=== PATIENT | male | born 1955 | race Caucasian/White ===

== ENCOUNTER 2017-11-09 08:23 | Inpatient (IN) | payer MEDICARE ==
[2017-11-08 14:22] LABS: BASOPHILS % (AUTO) 0.6 % (0-1); EOSINOPHILS # (AUTO) 0.3 X10'3 (0-0.9); EOSINOPHILS % (AUTO) 3.9 % (0-6); LYMPHOCYTES # (AUTO) 2.9 X10'3 (1.1-4.8); LYMPHOCYTES % (AUTO) 36.3 % (21-51); MEAN CORPUSCULAR HEMOGLOBIN 28.9 PG (27.0-31.0); MEAN CORPUSCULAR HGB CONC 34.3 % (33.0-36.5); MEAN CORPUSCULAR VOLUME 84.5 FL (78-98); MEAN PLATELET VOLUME 8.2 FL (7.4-10.4); MONOCYTES # (AUTO) 0.6 X10'3 (0-0.9); MONOCYTES % (AUTO) 6.9 % (2-12); NEUTROPHILS # (AUTO) 4.2 X10'3 (1.8-7.7); NEUTROPHILS % (AUTO) 52.3 % (42-75); PRE OP HEMATOCRIT 38.9 % (42.0-52.0); PRE OP HEMOGLOBIN 13.3 g/dL (14.0-17.9); PRE OP PLATELET COUNT 208 X10'3 (140-440); RED BLOOD COUNT 4.61 X10'6 (4.70-6.10); RED CELL DISTRIBUTION WIDTH 13.8 % (11.5-14.5)
[2017-11-08 14:29] LABS: PRE OP PROTIME 10.1 SECONDS (9.0-12.0)
[2017-11-08 14:33] LABS: ALBUMIN 3.6 G/DL (3.4-5.0); ALKALINE PHOSPHATASE 51 IU/L (46-116); BLOOD UREA NITROGEN 24 MG/DL (7-18); BUN/CREATININE RATIO 21.8 (5.4-32.0); CALCIUM 8.8 MG/DL (8.5-10.1); CHLORIDE 104 MMOL/L (99-107); PRE OP ALT 33 U/L (30-65); PRE OP ANION GAP 8 (8-16); PRE OP AST 22 U/L (10-37); PRE OP BILIRUB, TOTAL 0.6 MG/DL (0.0-1.0); PRE OP GLUCOSE 86 MG/DL (70-104); PRE OP SODIUM 141 MMOL/L (135-145); TOTAL CARBON DIOXIDE 29.5 MMOL/L (24-32); TOTAL PROTEIN 7.1 G/DL (6.4-8.2); eGFR 68 ML/MIN
[~2017-11-09] VITALS: Ht 181.6 cm; Wt 113.9 kg
[2017-11-09] VITALS (19 sets, daily range): BP systolic 120–143; BP diastolic 65–92
[~2017-11-09 08:23] MED LIST: AMIT75TA2 PO; CETI10TA15 PO; CHOL100046 PO; FLO0.4C PO; FLUT16SP2 BOTHNARES; HYDR-565 PO; LISI30TA4 PO; MELA10TA2 PO; SIMV40TA4 PO; ceFAZolin 2gm in dextrose, iso 100 ML IV ONE; famotidine 20mg tablet PO ONE; ringers solution, lacted 1,000 ML IV SCH; tranexamic acid inj. 1,000 MG in normal saline 100ml IV soln 90 ML IV ONE; vancomycin/NS 1 GM ADD-VANTAGE 250 ML X 1 DOSE IV ONE
[2017-11-09] MEDS ORDERED: ROPIVAcaine 0.5% (5mg/ml) 30ml vial ONE ×3 (11:20→13:11)
[2017-11-09] MEDS ORDERED: ketorolac trometh. 30mg/ml inj. ONE (11:20)
[2017-11-09] MEDS ORDERED: tranexamic acid inj. 1,140 MG in normal saline 100ml IV soln 88.6 ML IV ONE ×4 (11:45)
[2017-11-09] MEDS ORDERED: vancomycin 1,000mg inj ONE (11:57)
[2017-11-09] MEDS ORDERED: tranexamic acid inj. 1,000 MG in normal saline 100ml IV soln 90 ML IV ONE (12:00)
[2017-11-09] MEDS ORDERED: sevoflurane 250ml liquid IH ONE (12:17)
[2017-11-09] MEDS ORDERED: midazolam 2 mg/2 ml injection ONE (12:23)
[2017-11-09] MEDS ORDERED: fentaNYL /PF 50mcg/ml 5ml ampule ONE (12:23)
[2017-11-09] MEDS ORDERED: ringers solution, lacted 1,000 ML IV SCH (13:19)
[2017-11-09] MEDS ORDERED: ketorolac trometh. 30mg/ml inj. IV ONE (13:20)
[2017-11-09] MEDS ORDERED: meperidine/PF 25mg/ml syringe IV PRN ×2 (13:20)
[2017-11-09] MEDS ORDERED: ondansetron/PF 4mg/2ml inj IV PRN (13:20)
[2017-11-09] MEDS ORDERED: morphine 4 MG/ML inj SYRINge IV PRN ×2 (13:20)
[2017-11-09] MEDS ORDERED: proCHLORperazine 10 MG/2 ml inj IV PRN (13:20)
[2017-11-09] MEDS ORDERED: rocuronium 10mg/ml inj IV ONE (14:50)
[2017-11-09] MEDS ORDERED: propofol inj 20 ML IV ONE (14:50)
[2017-11-09] MEDS ORDERED: fentaNYL/PF 50MCG/1 ML 2ML syringe ONE (14:51)
[2017-11-09] MEDS ORDERED: HYDROmorphone inj. 0.5 MG/0.5 ML DISP.SYRIN IV PRN ×2 (15:55)
[2017-11-09] MEDS ORDERED: acetaminophen 325mg tablet PO PRN (15:55)
[2017-11-09] MEDS ORDERED: oxyCODONE IR 5mg (immed. release) tablet PO PRN (15:55)
[2017-11-09] MEDS ORDERED: magnesium hydroxide 30ml (MOM) UD suspension PO PRN (15:55)
[2017-11-09] MEDS ORDERED: bisacodyl 10mg suppository rectal RC PRN (15:55)
[2017-11-09] MEDS ORDERED: diphenhydrAMINE 25mg capsule PO PRN ×2 (15:55)
[2017-11-09] MEDS: ceFAZolin 1GM/D5W- ADD-VANTAGE 50 ML IV SCH (16:00)
[2017-11-09] MEDS: acetaminophen 1,000mg/100ml IV 100 ML IV PRN ×2 (16:47→19:07)
[2017-11-09] MEDS: meperidine/PF 25mg/ml syringe IV PRN ×3 (16:48→19:07)
[2017-11-09] MEDS ORDERED: TRANEXAMIC ACID IV ONE (19:00)
[2017-11-09] MEDS ORDERED: NORMAL SALINE IV ONE (19:00)
[2017-11-09] MEDS ORDERED: HYDROmorphone 1 mg/ml syringe IV PRN (19:22)
[2017-11-09] MEDS: HYDROmorphone 1 mg/ml syringe IV PRN (19:30)
[2017-11-09] MEDS: potassium cl 20mEq in 1/2 NS 1,000 ML IV SCH ×2 (19:32→23:51)
[2017-11-09] MEDS ORDERED: vancomycin/NS 1 GM ADD-VANTAGE 250 ML IV SCH (20:00)
[2017-11-09] MEDS: ketorolac tromethamine 15mg/ml inj. IV SCH (20:37)
[2017-11-09] MEDS: acetaminophen 325mg tablet PO SCH (20:39)
[2017-11-09] MEDS: atorvastatin 20mg tablet PO SCH (20:39)
[2017-11-09] MEDS: gabapentin 300mg capsule PO SCH (20:39)
[2017-11-09] MEDS: sennosides 8.6mg tablet PO SCH (20:40)
[2017-11-09] MEDS: amitriptyline 25mg tablet PO SCH (20:40)
[2017-11-10] VITALS (7 sets, daily range): BP systolic 114–144; BP diastolic 72–87
[2017-11-10] MEDS: ceFAZolin 1GM/D5W- ADD-VANTAGE 50 ML IV SCH (00:43)
[2017-11-10] MEDS: ketorolac tromethamine 15mg/ml inj. IV SCH ×3 (01:43→14:01)
[2017-11-10] MEDS: acetaminophen 325mg tablet PO SCH ×4 (01:44→19:35)
[2017-11-10] MEDS: potassium cl 20mEq in 1/2 NS 1,000 ML IV SCH ×3 (05:30→23:51)
[2017-11-10 05:44] LABS: BASOPHILS # (AUTO) 0.1 X10'3 (0-0.2); BASOPHILS % (AUTO) 0.6 % (0-1); EOSINOPHILS # (AUTO) 0.3 X10'3 (0-0.9); HEMATOCRIT 35.6 % (42.0-52.0); HEMOGLOBIN 12.1 g/dl (14.0-17.9); LYMPHOCYTES # (AUTO) 1.7 X10'3 (1.1-4.8); LYMPHOCYTES % (AUTO) 19.1 % (21-51); MEAN CORPUSCULAR HEMOGLOBIN 29.1 PG (27.0-31.0); MEAN CORPUSCULAR HGB CONC 34.1 % (33.0-36.5); MEAN CORPUSCULAR VOLUME 85.3 FL (78-98); MEAN PLATELET VOLUME 8.3 FL (7.4-10.4); MONOCYTES # (AUTO) 0.5 X10'3 (0-0.9); MONOCYTES % (AUTO) 5.7 % (2-12); NEUTROPHILS # (AUTO) 6.5 X10'3 (1.8-7.7); NEUTROPHILS % (AUTO) 71.6 % (42-75); PLATELET COUNT 179 X10'3 (140-440); RED BLOOD COUNT 4.17 X10'6 (4.70-6.10); RED CELL DISTRIBUTION WIDTH 13.7 % (11.5-14.5)
[2017-11-10 06:14] LABS: ANION GAP 7 (8-16); CHLORIDE 105 MMOL/L (99-107); POTASSIUM 4.5 MMOL/L (3.5-5.1); SODIUM 142 MMOL/L (135-145); TOTAL CARBON DIOXIDE 30.4 MMOL/L (24-32)
[2017-11-10] MEDS: gabapentin 300mg capsule PO SCH ×3 (07:59→19:34)
[2017-11-10] MEDS: fluticasone nasal spray 16GM bottle NS SCH (08:00)
[2017-11-10] MEDS ORDERED: cetirizine 10mg tablet PO SCH (08:00)
[2017-11-10] MEDS: vitamin D (cholecalciferol) 1,000 unit tablet PO SCH (08:00)
[2017-11-10] MEDS: oxyCODONE IR 5mg (immed. release) tablet PO PRN ×4 (08:02→22:50)
[2017-11-10] MEDS: aspirin 325mg tablet PO SCH (08:02)
[2017-11-10] MEDS: lisinopril 10 MG tablet PO SCH (08:02)
[2017-11-10] MEDS: sennosides 8.6mg tablet PO SCH (19:34)
[2017-11-10] MEDS: amitriptyline 25mg tablet PO SCH (19:34)
[2017-11-10] MEDS: celeCOXIB 100mg capsule PO SCH (19:34)
[2017-11-10] MEDS: atorvastatin 20mg tablet PO SCH (19:34)
[2017-11-10] MEDS: HYDROmorphone 1 mg/ml syringe IV PRN (20:24)
[2017-11-10] MEDS: ondansetron/PF 4mg/2ml inj IV PRN (21:33)
[2017-11-11] MEDS: HYDROmorphone 1 mg/ml syringe IV PRN ×2 (00:21→10:19)
[2017-11-11] MEDS ORDERED: MORPHINE 2MG in 2ml NS syringe IV PRN (01:40)
[2017-11-11] MEDS ORDERED: morphine 2 MG/ML inj. syringe IV PRN (01:50)
[2017-11-11] MEDS: acetaminophen 325mg tablet PO SCH ×2 (01:57→07:15)
[2017-11-11] MEDS: oxyCODONE IR 5mg (immed. release) tablet PO PRN ×2 (02:21→09:09)
[2017-11-11] MEDS ORDERED: mag hydrox/Alum hydrox/simeth 30ml oral suspension PO PRN (03:45)
[2017-11-11 05:00] VITALS: BP 159/83
[2017-11-11] MEDS ORDERED: HYDROmorphone 2mg tablet PO ONE (05:00)
[2017-11-11 05:49] LABS: BASOPHILS % (AUTO) 0.2 % (0-1); EOSINOPHILS # (AUTO) 0.2 X10'3 (0-0.9); EOSINOPHILS % (AUTO) 1.4 % (0-6); HEMOGLOBIN 12.7 g/dl (14.0-17.9); LYMPHOCYTES # (AUTO) 1.1 X10'3 (1.1-4.8); LYMPHOCYTES % (AUTO) 8.7 % (21-51); MEAN CORPUSCULAR HEMOGLOBIN 29.2 PG (27.0-31.0); MEAN CORPUSCULAR HGB CONC 34.4 % (33.0-36.5); MEAN CORPUSCULAR VOLUME 84.8 FL (78-98); MEAN PLATELET VOLUME 8.3 FL (7.4-10.4); MONOCYTES # (AUTO) 0.7 X10'3 (0-0.9); MONOCYTES % (AUTO) 5.9 % (2-12); NEUTROPHILS # (AUTO) 10.4 X10'3 (1.8-7.7); NEUTROPHILS % (AUTO) 83.8 % (42-75); PLATELET COUNT 204 X10'3 (140-440); RED BLOOD COUNT 4.36 X10'6 (4.70-6.10); RED CELL DISTRIBUTION WIDTH 13.5 % (11.5-14.5); WHITE BLOOD COUNT 12.4 X10'3 (4.5-11.0)
[2017-11-11 06:00] VITALS: BP 159/83
[2017-11-11] MEDS ORDERED: LORazepam 1 MG tablet PO ONE (06:30)
[2017-11-11] MEDS: fluticasone nasal spray 16GM bottle NS SCH (07:13)
[2017-11-11] MEDS: gabapentin 300mg capsule PO SCH ×3 (07:13→21:29)
[2017-11-11] MEDS: celeCOXIB 100mg capsule PO SCH ×2 (07:13→21:28)
[2017-11-11] MEDS: vitamin D (cholecalciferol) 1,000 unit tablet PO SCH (07:16)
[2017-11-11] MEDS: lisinopril 10 MG tablet PO SCH (07:16)
[2017-11-11] MEDS: cetirizine 10mg tablet PO SCH (07:17)
[2017-11-11] MEDS ORDERED: oxyCODONE SR 10mg (sust. release) tab PO SCH (08:00)
[2017-11-11] MEDS: aspirin 325mg tablet PO SCH (09:10)
[2017-11-11 10:00] VITALS: BP 162/95
[2017-11-11] MEDS ORDERED: LORazepam 1 MG tablet PO PRN (10:15)
[2017-11-11] MEDS ORDERED: oxyCODONE/APAP 10/325mg tablet PO PRN ×2 (10:15)
[2017-11-11] MEDS ORDERED: HYDROmorphone/NS 1 mg/ml CADD 50 ML IV SCH (10:40)
[2017-11-11] MEDS: ondansetron/PF 4mg/2ml inj IV PRN ×2 (12:56→18:27)
[2017-11-11] MEDS ORDERED: acetaminophen 325mg tablet PO PRN (15:55)
[2017-11-11 18:00] VITALS: BP 141/83
[2017-11-11] MEDS: HYDROmorphone/NS 1 mg/ml CADD 50 ML IV SCH ×3 (18:04→23:00)
[2017-11-11] MEDS: sennosides 8.6mg tablet PO SCH (21:29)
[2017-11-11] MEDS: amitriptyline 25mg tablet PO SCH (21:29)
[2017-11-11] MEDS: atorvastatin 20mg tablet PO SCH (21:29)
[2017-11-11 22:00] VITALS: BP 130/84
[2017-11-12] MEDS: HYDROmorphone/NS 1 mg/ml CADD 50 ML IV SCH ×6 (01:00→11:00)
[2017-11-12] MEDS ORDERED: acetaminophen 325mg tablet PO PRN (01:20)
[2017-11-12] MEDS: ondansetron/PF 4mg/2ml inj IV PRN ×2 (01:46→07:41)
[2017-11-12] MEDS: aspirin 325mg tablet PO SCH (04:59)
[2017-11-12 06:15] VITALS: BP 139/87
[2017-11-12 07:10] LABS: BASOPHILS % (AUTO) 0.3 % (0-1); EOSINOPHILS # (AUTO) 0.4 X10'3 (0-0.9); EOSINOPHILS % (AUTO) 3.6 % (0-6); HEMATOCRIT 38.1 % (42.0-52.0); HEMOGLOBIN 12.7 g/dl (14.0-17.9); LYMPHOCYTES # (AUTO) 1.5 X10'3 (1.1-4.8); LYMPHOCYTES % (AUTO) 13.5 % (21-51); MEAN CORPUSCULAR HEMOGLOBIN 28.8 PG (27.0-31.0); MEAN CORPUSCULAR HGB CONC 33.3 % (33.0-36.5); MEAN CORPUSCULAR VOLUME 86.4 FL (78-98); MEAN PLATELET VOLUME 9.1 FL (7.4-10.4); MONOCYTES # (AUTO) 0.7 X10'3 (0-0.9); MONOCYTES % (AUTO) 6.4 % (2-12); NEUTROPHILS # (AUTO) 8.2 X10'3 (1.8-7.7); NEUTROPHILS % (AUTO) 76.2 % (42-75); PLATELET COUNT 187 X10'3 (140-440); RED BLOOD COUNT 4.41 X10'6 (4.70-6.10); RED CELL DISTRIBUTION WIDTH 12.9 % (11.5-14.5); WHITE BLOOD COUNT 10.8 X10'3 (4.5-11.0)
[2017-11-12] MEDS: gabapentin 300mg capsule PO SCH ×2 (07:29→12:51)
[2017-11-12] MEDS: vitamin D (cholecalciferol) 1,000 unit tablet PO SCH (07:29)
[2017-11-12] MEDS: lisinopril 10 MG tablet PO SCH (07:29)
[2017-11-12] MEDS: celeCOXIB 100mg capsule PO SCH (07:29)
[2017-11-12] MEDS: cetirizine 10mg tablet PO SCH (07:29)
[2017-11-12] MEDS: fluticasone nasal spray 16GM bottle NS SCH (07:34)
[2017-11-12] MEDS ORDERED: ASPI-1 PO (08:44)
[2017-11-12] MEDS ORDERED: OXYC-150 PO (08:44)
[2017-11-12] MEDS ORDERED: WALKERFR (10:40)
[2017-11-12] MEDS ORDERED: oxyCODONE/APAP 10/325mg tablet PO PRN ×2 (11:20)
[2017-11-12] MEDS ORDERED: oxyCODONE/APAP 10/325mg tablet PO ONE (11:30)
[2017-11-12 12:46] VITALS: BP 136/75
[2017-11-12] MEDS ORDERED: CADD PCA waste documentation MC PRN (13:00)
== END 2017-11-12 17:45 | disposition home health service (06) | DRG 470 ==
LOC: PAS IN 08:23 → EDSTATUS 11:45 → ORTHO 4S 17:25
PROVIDERS: ADMIT Orthopaedic Surgery; ATTEND Orthopaedic Surgery
PROC: 8E0YXBZ Computer Assisted Procedure of Lower Extremity (ICD-10-PCS; 2017-11-09)
PROC: 8E0YXCZ Robotic Assisted Procedure of Lower Extremity (ICD-10-PCS; 2017-11-09)
PROC: 3E0T3BZ Introduction of Anesthetic Agent into Peripheral Nerves and Plexi, Percutaneous Approach (ICD-10-PCS; 2017-11-09)
PROC: 0SRD0J9 Replacement of Left Knee Joint with Synthetic Substitute, Cemented, Open Approach (ICD-10-PCS; principal; 2017-11-09 12:17)
DX: M17.0 Bilateral primary osteoarthritis of knee (principal); D62 Acute posthemorrhagic anemia; I10 Essential (primary) hypertension; E78.5 Hyperlipidemia, unspecified; G43.909 Migraine, unspecified, not intractable, without status migrainosus; G89.29 Other chronic pain; K30 Functional dyspepsia; M54.2 Cervicalgia; M54.9 Dorsalgia, unspecified; Z72.89 Other problems related to lifestyle; Z79.899 Other long term (current) drug therapy; Z88.1 Allergy status to other antibiotic agents
CPT/HCPCS: 36415; 80051; 80053; 85025; 85610; 85730; 87070; 97110; 97116; 97161; 97530; A6455; A7000; C1713; C1758; C1776; J0131; J0690; J1170; J1885; J2175; J2250; J2270; J2274; J2405; J2704; J2795; J3010; J3370; J7030; J7120; Q0163

== ENCOUNTER 2018-01-25 05:26 | Day surgery (SDC) | payer MEDICARE ==
[2018-01-19 14:34] LABS: BASOPHILS % (AUTO) 0.6 % (0-1); EOSINOPHILS # (AUTO) 0.4 X10'3 (0-0.9); EOSINOPHILS % (AUTO) 4.9 % (0-6); LYMPHOCYTES # (AUTO) 2.4 X10'3 (1.1-4.8); LYMPHOCYTES % (AUTO) 31.6 % (21-51); MEAN CORPUSCULAR HEMOGLOBIN 27.9 PG (27.0-31.0); MEAN CORPUSCULAR HGB CONC 33.7 % (33.0-36.5); MEAN CORPUSCULAR VOLUME 82.8 FL (78-98); MEAN PLATELET VOLUME 7.7 FL (7.4-10.4); MONOCYTES # (AUTO) 0.6 X10'3 (0-0.9); MONOCYTES % (AUTO) 7.9 % (2-12); NEUTROPHILS # (AUTO) 4.2 X10'3 (1.8-7.7); PRE OP HEMATOCRIT 35.6 % (42.0-52.0); PRE OP PLATELET COUNT 265 X10'3 (140-440); RED BLOOD COUNT 4.29 X10'6 (4.70-6.10); RED CELL DISTRIBUTION WIDTH 14.4 % (11.5-14.5)
[2018-01-19 14:51] LABS: ALBUMIN 3.5 G/DL (3.4-5.0); ALBUMIN/GLOBULIN RATIO 0.9 (1.1-1.5); ALKALINE PHOSPHATASE 68 IU/L (46-116); BLOOD UREA NITROGEN 19 MG/DL (7-18); BUN/CREATININE RATIO 17.6 (5.4-32.0); CALCIUM 9.2 MG/DL (8.5-10.1); CHLORIDE 103 MMOL/L (99-107); CREATININE 1.08 MG/DL (0.60-1.10); PRE OP ALT 23 U/L (30-65); PRE OP ANION GAP 5 (8-16); PRE OP AST 12 U/L (10-37); PRE OP BILIRUB, TOTAL 0.4 MG/DL (0.0-1.0); PRE OP GLUCOSE 87 MG/DL (70-104); PRE OP SODIUM 139 MMOL/L (135-145); TOTAL CARBON DIOXIDE 31.2 MMOL/L (24-32); TOTAL PROTEIN 7.3 G/DL (6.4-8.2); eGFR 69 ML/MIN
[2018-01-25] VITALS (12 sets, daily range): BP systolic 115–159; BP diastolic 74–99
[~2018-01-25] VITALS: Ht 182.9 cm; Wt 109.0 kg
[~2018-01-25 05:26] MED LIST changes: -ceFAZolin 2gm in dextrose, iso 100 ML IV ONE; -famotidine 20mg tablet PO ONE; -ringers solution, lacted 1,000 ML IV SCH; -tranexamic acid inj. 1,000 MG in normal saline 100ml IV soln 90 ML IV ONE; -vancomycin/NS 1 GM ADD-VANTAGE 250 ML X 1 DOSE IV ONE
[2018-01-25] MEDS ORDERED: LIDOcaine 1% (10mg/ml) 2ml vial ONE (05:46)
[2018-01-25] MEDS ORDERED: ringers solution, lacted 1,000 ML IV SCH ×2 (06:02→07:55)
[2018-01-25] MEDS ORDERED: famotidine 20mg tablet PO ONE (06:02)
[2018-01-25] MEDS ORDERED: BUPIVAcaine/PF 2.5mg/ml (0.25%) 10ml vial ONE (06:34)
[2018-01-25] MEDS ORDERED: triamcinolone acetonide 40mg/ml inj ONE (06:34)
[2018-01-25] MEDS ORDERED: sevoflurane 250ml liquid IH ONE (07:21)
[2018-01-25] MEDS ORDERED: fentaNYL/PF 50MCG/1 ML 2ML syringe ONE (07:24)
[2018-01-25] MEDS ORDERED: LIDOcaine 2% (20mg/ml) 5ml vial ONE (07:24)
[2018-01-25] MEDS ORDERED: propofol inj 20 ML IV ONE (07:24)
[2018-01-25] MEDS ORDERED: midazolam 2 mg/2 ml injection ONE (07:25)
[2018-01-25] MEDS ORDERED: HYDROcodone/acetaminophen 10/325mg tab PO PRN (07:45)
[2018-01-25] MEDS ORDERED: meperidine/PF 25mg/ml syringe ONE ×2 (07:51→07:57)
[2018-01-25] MEDS ORDERED: proCHLORperazine 10 MG/2 ml inj IV PRN (07:55)
[2018-01-25] MEDS ORDERED: meperidine/PF 25mg/ml syringe IV PRN ×3 (07:55)
[2018-01-25] MEDS ORDERED: ondansetron/PF 4mg/2ml inj IV PRN (07:55)
[2018-01-25] MEDS ORDERED: morphine 4 MG/ML inj SYRINge IV PRN ×2 (07:55)
[2018-01-25] MEDS ORDERED: acetaminophen 1,000mg/100ml IV 100 ML IV SCH (08:00)
[2018-01-25] MEDS ORDERED: ketorolac tromethamine 15mg/ml inj. IM ONE (08:00)
== END 2018-01-25 09:22 | disposition home or self-care (01) ==
LOC: PAS 05:26
PROVIDERS: ATTEND Orthopaedic Surgery
DX: M24.561 Contracture, right knee (principal); M17.0 Bilateral primary osteoarthritis of knee; I10 Essential (primary) hypertension; E66.9 Obesity, unspecified; N40.0 Benign prostatic hyperplasia without lower urinary tract symptoms; E78.5 Hyperlipidemia, unspecified; G43.909 Migraine, unspecified, not intractable, without status migrainosus; Z72.89 Other problems related to lifestyle; Z96.651 Presence of right artificial knee joint; Z90.49 Acquired absence of other specified parts of digestive tract; Z79.891 Long term (current) use of opiate analgesic; Z88.1 Allergy status to other antibiotic agents; Z68.32 Body mass index [BMI] 32.0-32.9, adult; Z47.1 Aftercare following joint replacement surgery; Z87.891 Personal history of nicotine dependence; Z98.890 Other specified postprocedural states; Z79.899 Other long term (current) drug therapy
CPT/HCPCS: 27570; 36415; 80053; 85025; 87070; 87075; J0131; J1885; J2001; J2175; J2250; J2704; J3010; J3301; J3490; J7120

== ENCOUNTER 2018-04-26 09:38 | Inpatient (IN) | payer MEDICARE ==
[2018-04-25 12:23] LABS: BASOPHILS % (AUTO) 0.6 % (0-1); EOSINOPHILS # (AUTO) 0.4 X10'3 (0-0.9); EOSINOPHILS % (AUTO) 5.5 % (0-6); LYMPHOCYTES # (AUTO) 2.3 X10'3 (1.1-4.8); LYMPHOCYTES % (AUTO) 31.9 % (21-51); MEAN CORPUSCULAR HEMOGLOBIN 27.4 PG (27.0-31.0); MEAN CORPUSCULAR HGB CONC 33.1 % (33.0-36.5); MEAN CORPUSCULAR VOLUME 82.9 FL (78-98); MEAN PLATELET VOLUME 8.4 FL (7.4-10.4); MONOCYTES # (AUTO) 0.6 X10'3 (0-0.9); NEUTROPHILS # (AUTO) 3.9 X10'3 (1.8-7.7); PRE OP HEMATOCRIT 38.6 % (42.0-52.0); PRE OP HEMOGLOBIN 12.8 g/dL (14.0-17.9); PRE OP PLATELET COUNT 224 X10'3 (140-440); RED BLOOD COUNT 4.65 X10'6 (4.70-6.10); RED CELL DISTRIBUTION WIDTH 15.1 % (11.5-14.5)
[2018-04-25 12:37] LABS: PRE OP PROTIME 10.1 SECONDS (9.0-12.0)
[2018-04-25 12:39] LABS: ALBUMIN 3.5 G/DL (3.4-5.0); ALKALINE PHOSPHATASE 56 IU/L (46-116); BLOOD UREA NITROGEN 24 MG/DL (7-18); BUN/CREATININE RATIO 23.5 (5.4-32.0); CALCIUM 8.9 MG/DL (8.5-10.1); CHLORIDE 103 MMOL/L (99-107); CREATININE 1.02 MG/DL (0.60-1.10); PRE OP ALT 28 U/L (30-65); PRE OP ANION GAP 8 (8-16); PRE OP AST 20 U/L (10-37); PRE OP BILIRUB, TOTAL 0.6 MG/DL (0.0-1.0); PRE OP GLUCOSE 85 MG/DL (70-104); PRE OP POTASSIUM 4.2 MMOL/L (3.4-5.1); PRE OP SODIUM 140 MMOL/L (135-145); TOTAL CARBON DIOXIDE 29.1 MMOL/L (24-32); eGFR 74 ML/MIN
[2018-04-26] VITALS (16 sets, daily range): BP systolic 104–152; BP diastolic 52–88
[~2018-04-26] VITALS: Ht 182.9 cm; Wt 113.8 kg
[~2018-04-26 09:38] MED LIST changes: +HYDR-4353 PO; -HYDR-565 PO; +OMEG1CAP PO; +VANCOMYCIN INJ 1000 MG in NORMAL SALINE 250ml IV.SOLN IV ONE; +cefazolin/dext.iso 2gm/100 ML IV ONE; +famotidine 20mg tablet PO ONE; +ringers solution, lacted 1,000 ML IV SCH; +tranexamic acid inj. 1,100 MG in normal saline 100ml IV soln 89 ML IV ONE
[2018-04-26] MEDS ORDERED: tetracaine 1% (10mg/ml) pres. free inj. ONE (12:49)
[2018-04-26] MEDS ORDERED: ROPIVAcaine 0.5% (5mg/ml) 30ml vial ONE ×2 (12:49→12:51)
[2018-04-26] MEDS ORDERED: vancomycin 1,000mg inj ONE (12:50)
[2018-04-26] MEDS ORDERED: ketorolac trometh. 30mg/ml inj. ONE (12:50)
[2018-04-26] MEDS ORDERED: ringers solution, lacted 1,000 ML IV SCH (13:18)
[2018-04-26] MEDS ORDERED: labetalol 20mg/4ml (5mg/ml) syringe IV PRN (13:20)
[2018-04-26] MEDS ORDERED: hydrALAZINE 20mg/ml inj. IV PRN (13:20)
[2018-04-26] MEDS ORDERED: HYDROmorphone inj. 0.5 MG/0.5 ML DISP.SYRIN IV PRN ×2 (13:20)
[2018-04-26] MEDS ORDERED: ondansetron/PF 4mg/2ml inj IV PRN ×3 (13:20→17:40)
[2018-04-26] MEDS ORDERED: morphine 4 MG/ML inj SYRINge IV PRN ×2 (13:20)
[2018-04-26] MEDS ORDERED: dexamethasone sod phosphate 10mg/ml inj ONE (14:02)
[2018-04-26] MEDS ORDERED: LIDOcaine 1%/PF 5ML 10 MG/ML VIAL ONE (14:02)
[2018-04-26] MEDS ORDERED: sevoflurane 250ml liquid IH ONE (14:02)
[2018-04-26] MEDS ORDERED: MIDAZolam 5mg/5ml vial ONE (14:11)
[2018-04-26] MEDS ORDERED: fentaNYL/PF 50MCG/1 ML 2ML syringe ONE (14:11)
[2018-04-26] MEDS ORDERED: propofol inj 20 ML IV ONE ×3 (14:29→14:39)
[2018-04-26] MEDS ORDERED: diphenhydrAMINE 50 mg/ml inj IV PRN (15:05)
[2018-04-26] MEDS ORDERED: bisacodyl 10mg suppository rectal RC PRN (17:40)
[2018-04-26] MEDS ORDERED: diphenhydrAMINE 25mg capsule PO PRN ×2 (17:40)
[2018-04-26] MEDS ORDERED: oxyCODONE IR 5mg (immed. release) tablet PO PRN (17:40)
[2018-04-26] MEDS ORDERED: HYDROmorphone 1 mg/ml syringe IV PRN ×2 (17:40)
[2018-04-26] MEDS ORDERED: acetaminophen 325mg tablet PO PRN (17:40)
[2018-04-26] MEDS ORDERED: magnesium hydroxide 30ml (MOM) UD suspension PO PRN (17:40)
[2018-04-26 18:06] LABS: APPEARANCE,SYNOVIAL FLUID CLEAR; COLOR,SYNOVIAL FLUID YELLOW; LYMPHOCYTES,SYNOVIAL FLUID 56 % (0-75); MONOCYTES,SYNOVIAL FLUID 31 % (0-0); NEUTROPHILS,SYNOVIAL FLUID 13 % (0-25); SYN RBC 560 /CU MM (0); SYN WBC 90 /CU MM (0-200)
[2018-04-26] MEDS: potassium cl 20mEq in 1/2 NS 1,000 ML IV SCH (19:23)
[2018-04-26] MEDS ORDERED: vancomycin/NS 1 GM ADD-VANTAGE 250 ML IV SCH (20:00)
[2018-04-26] MEDS: acetaminophen 325mg tablet PO SCH (20:57)
[2018-04-26] MEDS: atorvastatin 20mg tablet PO SCH (20:57)
[2018-04-26] MEDS: tamsulosin 0.4mg capsule PO SCH (20:57)
[2018-04-26] MEDS: amitriptyline 25mg tablet PO SCH (20:57)
[2018-04-26] MEDS: gabapentin 300mg capsule PO SCH (20:57)
[2018-04-26] MEDS: Melatonin 3mg tablet PO SCH (20:57)
[2018-04-26] MEDS: sennosides 8.6mg tablet PO SCH (20:58)
[2018-04-26] MEDS: ketorolac tromethamine 15mg/ml inj. IV SCH (20:58)
[2018-04-26] MEDS ORDERED: tranexamic acid inj. 1,100 MG in normal saline 100ml IV soln 100 ML IV ONE (21:00)
[2018-04-27 02:00] VITALS: BP 121/69
[2018-04-27] MEDS: ketorolac tromethamine 15mg/ml inj. IV SCH ×3 (02:04→13:55)
[2018-04-27] MEDS: acetaminophen 325mg tablet PO SCH ×4 (02:05→20:13)
[2018-04-27 05:00] VITALS: BP 117/68
[2018-04-27] MEDS: oxyCODONE IR 5mg (immed. release) tablet PO PRN ×4 (05:35→22:48)
[2018-04-27] MEDS: potassium cl 20mEq in 1/2 NS 1,000 ML IV SCH ×2 (05:38→09:39)
[2018-04-27 06:28] LABS: BASOPHILS # (AUTO) 0.1 X10'3 (0-0.2); BASOPHILS % (AUTO) 0.6 % (0-1); EOSINOPHILS # (AUTO) 0.1 X10'3 (0-0.9); EOSINOPHILS % (AUTO) 1.3 % (0-6); HEMOGLOBIN 10.6 g/dl (14.0-17.9); LYMPHOCYTES % (AUTO) 10.1 % (21-51); MEAN CORPUSCULAR HEMOGLOBIN 27.7 PG (27.0-31.0); MEAN PLATELET VOLUME 8.8 FL (7.4-10.4); MONOCYTES # (AUTO) 0.5 X10'3 (0-0.9); MONOCYTES % (AUTO) 5.4 % (2-12); NEUTROPHILS # (AUTO) 7.9 X10'3 (1.8-7.7); NEUTROPHILS % (AUTO) 82.6 % (42-75); PLATELET COUNT 198 X10'3 (140-440); RED BLOOD COUNT 3.81 X10'6 (4.70-6.10); RED CELL DISTRIBUTION WIDTH 15.3 % (11.5-14.5); WHITE BLOOD COUNT 9.6 X10'3 (4.5-11.0)
[2018-04-27 07:10] LABS: ANION GAP 10 (8-16); CHLORIDE 105 MMOL/L (99-107); POTASSIUM 4.3 MMOL/L (3.5-5.1); SODIUM 139 MMOL/L (135-145); TOTAL CARBON DIOXIDE 23.8 MMOL/L (24-32)
[2018-04-27 07:13] VITALS: BP 130/80
[2018-04-27] MEDS: ceFAZolin 1GM/D5W- ADD-VANTAGE 50 ML IV SCH ×2 (07:24)
[2018-04-27] MEDS: gabapentin 300mg capsule PO SCH ×3 (07:25→20:13)
[2018-04-27] MEDS: vitamin D (cholecalciferol) 1,000 unit tablet PO SCH (07:26)
[2018-04-27] MEDS: lisinopril 10 MG tablet PO SCH (07:28)
[2018-04-27] MEDS: omega-3 acid ethyl esters 1GM capsule PO SCH (07:28)
[2018-04-27] MEDS: fluticasone nasal spray 16GM bottle NS SCH (07:29)
[2018-04-27] MEDS: DOXYCYCLINE 100MG CAPSULE PO SCH ×2 (07:37→19:05)
[2018-04-27] MEDS: aspirin 325mg tablet PO SCH (07:38)
[2018-04-27] MEDS: cetirizine 10mg tablet PO SCH (07:38)
[2018-04-27 10:00] VITALS: BP 115/72
[2018-04-27 14:00] VITALS: BP 123/72
[2018-04-27] MEDS: tamsulosin 0.4mg capsule PO SCH (20:13)
[2018-04-27] MEDS: amitriptyline 25mg tablet PO SCH (20:13)
[2018-04-27] MEDS: celeCOXIB 100mg capsule PO SCH (20:13)
[2018-04-27] MEDS: sennosides 8.6mg tablet PO SCH (20:13)
[2018-04-27] MEDS: lactobacillus rhamnosus 10,000 MMU CELLS/CAPSULE PO SCH (20:13)
[2018-04-27] MEDS: Melatonin 3mg tablet PO SCH (20:13)
[2018-04-27] MEDS: atorvastatin 20mg tablet PO SCH (20:13)
[2018-04-27 22:00] VITALS: BP 130/79
[2018-04-28] MEDS: potassium cl 20mEq in 1/2 NS 1,000 ML IV SCH ×2 (01:39→09:39)
[2018-04-28] MEDS: acetaminophen 325mg tablet PO SCH (02:28)
[2018-04-28] MEDS: oxyCODONE IR 5mg (immed. release) tablet PO PRN ×2 (02:29→05:59)
[2018-04-28 06:00] VITALS: BP 131/83
[2018-04-28 06:10] LABS: BASOPHILS # (AUTO) 0.1 X10'3 (0-0.2); BASOPHILS % (AUTO) 0.7 % (0-1); EOSINOPHILS # (AUTO) 0.7 X10'3 (0-0.9); EOSINOPHILS % (AUTO) 7.8 % (0-6); HEMATOCRIT 33.5 % (42.0-52.0); HEMOGLOBIN 11.1 g/dl (14.0-17.9); LYMPHOCYTES # (AUTO) 1.9 X10'3 (1.1-4.8); LYMPHOCYTES % (AUTO) 22.9 % (21-51); MEAN CORPUSCULAR HEMOGLOBIN 27.9 PG (27.0-31.0); MEAN CORPUSCULAR HGB CONC 33.3 % (33.0-36.5); MEAN CORPUSCULAR VOLUME 83.8 FL (78-98); MEAN PLATELET VOLUME 8.4 FL (7.4-10.4); MONOCYTES # (AUTO) 0.5 X10'3 (0-0.9); NEUTROPHILS # (AUTO) 5.2 X10'3 (1.8-7.7); NEUTROPHILS % (AUTO) 62.6 % (42-75); PLATELET COUNT 193 X10'3 (140-440); RED BLOOD COUNT 3.99 X10'6 (4.70-6.10); RED CELL DISTRIBUTION WIDTH 14.6 % (11.5-14.5); WHITE BLOOD COUNT 8.4 X10'3 (4.5-11.0)
[2018-04-28] MEDS ORDERED: oxyCODONE/APAP 10/325mg tablet PO PRN (06:10)
[2018-04-28] MEDS: lactobacillus rhamnosus 10,000 MMU CELLS/CAPSULE PO SCH ×2 (08:07→20:58)
[2018-04-28] MEDS: gabapentin 300mg capsule PO SCH ×3 (08:07→20:59)
[2018-04-28] MEDS: vitamin D (cholecalciferol) 1,000 unit tablet PO SCH (08:07)
[2018-04-28] MEDS: omega-3 acid ethyl esters 1GM capsule PO SCH (08:07)
[2018-04-28] MEDS: celeCOXIB 100mg capsule PO SCH ×2 (08:07→20:58)
[2018-04-28] MEDS: fluticasone nasal spray 16GM bottle NS SCH (08:07)
[2018-04-28] MEDS: cetirizine 10mg tablet PO SCH (08:08)
[2018-04-28] MEDS: lisinopril 10 MG tablet PO SCH (08:08)
[2018-04-28] MEDS: aspirin 325mg tablet PO SCH (08:09)
[2018-04-28] MEDS: DOXYCYCLINE 100MG CAPSULE PO SCH ×2 (08:09→17:50)
[2018-04-28] MEDS ORDERED: ASPI-1 PO (09:38)
[2018-04-28 10:00] VITALS: BP 125/77
[2018-04-28] MEDS: oxyCODONE/APAP 10/325mg tablet PO PRN ×4 (10:05→21:47)
[2018-04-28] MEDS ORDERED: doxycycline PO (12:04)
[2018-04-28] MEDS ORDERED: PER10325T PO (12:05)
[2018-04-28] MEDS ORDERED: acetaminophen 325mg tablet PO PRN (17:40)
[2018-04-28 18:00] VITALS: BP 112/70
[2018-04-28] MEDS: atorvastatin 20mg tablet PO SCH (20:58)
[2018-04-28] MEDS: tamsulosin 0.4mg capsule PO SCH (20:58)
[2018-04-28] MEDS: sennosides 8.6mg tablet PO SCH (20:59)
[2018-04-28] MEDS ORDERED: zolpidem 5mg tablet PO ONE (21:00)
[2018-04-28] MEDS: amitriptyline 25mg tablet PO SCH (21:47)
[2018-04-28] MEDS: Melatonin 3mg tablet PO SCH (21:48)
[2018-04-28 22:00] VITALS: BP 118/66
[2018-04-29] MEDS: oxyCODONE/APAP 10/325mg tablet PO PRN ×3 (01:51→10:30)
[2018-04-29 06:00] VITALS: BP 129/81
[2018-04-29 06:46] LABS: BASOPHILS % (AUTO) 0.7 % (0-1); EOSINOPHILS # (AUTO) 0.6 X10'3 (0-0.9); EOSINOPHILS % (AUTO) 9.3 % (0-6); HEMATOCRIT 33.7 % (42.0-52.0); HEMOGLOBIN 11.3 g/dl (14.0-17.9); LYMPHOCYTES % (AUTO) 30.3 % (21-51); MEAN CORPUSCULAR HGB CONC 33.4 % (33.0-36.5); MEAN CORPUSCULAR VOLUME 83.7 FL (78-98); MEAN PLATELET VOLUME 8.3 FL (7.4-10.4); MONOCYTES # (AUTO) 0.5 X10'3 (0-0.9); MONOCYTES % (AUTO) 6.7 % (2-12); NEUTROPHILS # (AUTO) 3.6 X10'3 (1.8-7.7); PLATELET COUNT 211 X10'3 (140-440); RED BLOOD COUNT 4.03 X10'6 (4.70-6.10); WHITE BLOOD COUNT 6.8 X10'3 (4.5-11.0)
[2018-04-29] MEDS: aspirin 325mg tablet PO SCH (07:56)
[2018-04-29] MEDS: fluticasone nasal spray 16GM bottle NS SCH (07:56)
[2018-04-29] MEDS: DOXYCYCLINE 100MG CAPSULE PO SCH (07:57)
[2018-04-29] MEDS: omega-3 acid ethyl esters 1GM capsule PO SCH (07:57)
[2018-04-29] MEDS: celeCOXIB 100mg capsule PO SCH (07:57)
[2018-04-29] MEDS: vitamin D (cholecalciferol) 1,000 unit tablet PO SCH (07:57)
[2018-04-29] MEDS: lactobacillus rhamnosus 10,000 MMU CELLS/CAPSULE PO SCH (07:57)
[2018-04-29] MEDS: gabapentin 300mg capsule PO SCH (07:58)
[2018-04-29] MEDS: cetirizine 10mg tablet PO SCH (07:58)
[2018-04-29 07:59] VITALS: BP_SYST 129
[2018-04-29] MEDS: lisinopril 10 MG tablet PO SCH (07:59)
== END 2018-04-29 11:00 | disposition home health service (06) | DRG 467 ==
LOC: PAS IN 09:38 → EDSTATUS 13:15 → ORTHO 4S 19:03
PROVIDERS: ADMIT Orthopaedic Surgery; ATTEND Orthopaedic Surgery
PROC: 0SRV0J9 Replacement of Right Knee Joint, Tibial Surface with Synthetic Substitute, Cemented, Open Approach (ICD-10-PCS; 2018-04-26)
PROC: 8E0YXBZ Computer Assisted Procedure of Lower Extremity (ICD-10-PCS; 2018-04-26)
PROC: 3E0T3BZ Introduction of Anesthetic Agent into Peripheral Nerves and Plexi, Percutaneous Approach (ICD-10-PCS; 2018-04-26)
PROC: 0SPV0JZ Removal of Synthetic Substitute from Right Knee Joint, Tibial Surface, Open Approach (ICD-10-PCS; principal; 2018-04-26 14:07)
DX: T84.092A Other mechanical complication of internal right knee prosthesis, initial encounter (principal); D62 Acute posthemorrhagic anemia; Z96.651 Presence of right artificial knee joint; E78.5 Hyperlipidemia, unspecified; I10 Essential (primary) hypertension; M65.88 Other synovitis and tenosynovitis, other site; M24.661 Ankylosis, right knee; N40.0 Benign prostatic hyperplasia without lower urinary tract symptoms; Y79.2 Prosthetic and other implants, materials and accessory orthopedic devices associated with adverse incidents; G89.29 Other chronic pain; M54.9 Dorsalgia, unspecified; Z88.8 Allergy status to other drugs, medicaments and biological substances; Z72.89 Other problems related to lifestyle; Z47.1 Aftercare following joint replacement surgery; Z79.899 Other long term (current) drug therapy; Z87.891 Personal history of nicotine dependence
CPT/HCPCS: 36415; 80051; 80053; 85025; 85610; 85730; 87070; 87075; 87102; 87176; 88305; 88331; 89051; 93005; 97110; 97116; 97161; 97530; A7000; A9272; C1713; C1758; C1776; G0378; J0690; J1100; J1885; J2001; J2250; J2704; J2795; J3010; J3370; J7030; J7120